=== PATIENT | male | born 1990 | race Caucasian/White ===

== ENCOUNTER → 2017-02-25 | Outpatient (CLI) | payer OTHER ==
--- NOTE | 2017-02-25 09:40 | ST Modified Barium Swallow ---
Recommendation - Recommendations Recommendations: No diet modifications recommended. Patient may benefit from GI consult due to possible contribution to globus sensation. Patient to consider outpatient speech therapy to address lingual deficits impacting speech and swallowing. Medical Diagnoses - Medical Diagnoses Medical Diagnosis Description & ICD-10 Code(s): dysphagia R13.10 Other Medical Diagnoses/Co-Morbidities: tongue atrophy, facial diplegia ST Modified Barium Swallow - General Date: 02/25/17 Referring Physician: Dr. Darwin Macias Risks/Precautions: None Date of Onset: 07/28/16 - patient reports approximately 8 months ago condition began Reason for Referral: tongue will "lock up" while eating at times - History History obtained from: Patient -: Medical - Patient states that he was diagnosed with cranial nerve VII hypoglossal nerve palsey in 2012. He more recently has noted "locking up" of right side of his tongue, which negatively impacts his eating and speech at times. No known injury/condition which precipitated this, no other surgery/ injury to head or neck area. Patient reports that he has had a prior MBSS. Medications: None reported Allergies: penicillin, amoxycillin, percocet - Functional Status Prior Functional Status: INDEPENDENT: feeding - adequate for all consistencies. Current Functional Limitations: feeding - Avoiding foods that are harder to chew. - Subjective Patient/caregiver goal(s): better swallow, safe swallow Cognitive-Linguistic Function: WNL Speech Intelligibility: WNL Current Nutritional Means: PO Current PO diet: Regular Current symptoms: c/o Globus sensation, other - difficulty swallowing Pain: 0/5 - Objective Assessment: Upright, Left Lateral - Food Trials Used Food trials used: Thin liquids, Pureed, Regular The patient: Was Able to Self Feed - Oral-Motor Skills Dentition: Full Laryngeal Function: Volitional Cough, Throat Clear, Volitional Swallow Oral Motor Skills: Upon lingual protrusion, tongue deviates to right side, visible lingual atrophy noted on right side of tongue. Able to lateralize, although effortfully. - Assessment Oral prep: Normal Labial closure: Adequate Leakage: None Mastication: Effortful Lingual Movement: Discoordinated Oral stage: Moderately Impaired Oral Stage: Difficulty seen with bolus manipulation and propulsion. - Pharyngeal Stage Initiation of Pharyngeal Stage Reflex: Delayed Reflex Delay Time (Seconds): 1 - due to tongue base retraction Decreased laryngeal elevation: No Reduced Velopharyngeal Closure: no Reduced pressure generation: No reduced tongue-based retraction: No Pre-swallow pooling in valleculae: Mild Pre-Swallow pooling in pyriforms: None Reduced pharyngeal peristalsis/contraction: No Post-swallow residulas vallecular: None Post-Swallow residuals in pyriforms: Mild Pharyngeal Stage Comments: Good basic swallowing function at pharyngeal level with exception of complications of reduced tongue base retraction. - Fall Risk Assessment Medications/Conditions that increase fall risks include: Antidepressants, sedatives, anti-arrhythmic, diuretic, benzodiazipenes, neuroleptics. BP regulation problems, cardiac problems, balance or gait deficits, neurological problems. Is patient considered at risk for falls: no Fall Risk Actions Taken: No action needed - Behavioral Observations During evaluation process patient: was pleasant, was cooperative, able to answer questions, provided medical history Mental Status: Alert & Oriented X3 - Treatment / Educational Needs: Treatment/Education Needs: Treatment consisted of patient education on the role of the Speech Pathologist. Patient's plan of care and golas were communicated as well as scheduling and attendance policies. Recommendations for initial home program were shared. Patient demonstrated understanding and verbalized agreement. Initial home program recommendations: Alternate bites and sips. - Impression/Summary Laryngeal Penetration: No Tracheal Aspiration: no Patient presents with: Oral stage dysphagia, Mild-Moderate Risk of Aspiration: Mild Risk of nutritional compromise: None Evaluation and Findings: While swallowing skills apeared adequate this day for all trial consistencies, the pateint reports that as he eats continually, the tongue will begin to "lock up", further impairing his swallow and causing things to "go down the wrong way". Oral phase deficits were noted this day, but not severe enough to significantly impact swallowing skills. - Recommendations Solid diet recommendations: Regular - Patient may modify diet for increased comfort. Liquid Diet Modification: Thin Recommended techniques: Small Bites and Sips, Alternate Bites/Sips Information, Precautions and Recommendations: Patient (Written), Patient (Verbal ) - Time Total Time: 25 - Tutoring Assistant Goals Tutoring Assistant Goals: #1 - Establish HEP for improved oral phase for swallowing., #2 - Trial OMEs and stretches to establish patient benefit from such procedures. - Plan of Care Summary: Recommend trial of outpatient treatment to establish more efficient oral phase feeding skills. Patient to follow-up with referring physician: Yes Rehab potential for established goals: Good POC Procedures/Codes: neuro/sensory re-ed - Further treatment procedures to be determined by treatment therapist., oral motor exercises Strategies to optimize patient understanding include:: ongoing assessment of educational needs, implementation of educational strategies, and re-education. - - -: Thank you for the opportunity to work with this patient and his/her family. Should you have any questions about this patient's plan or progress, I can be reached at [phone]. Charge G Code? - - -: No
--- NOTE | 2017-03-04 09:07 | RADIOLOGY REPORT (SQ) ---
EXAM DESCRIPTION: ARIELLE SWALLOW COMPLETED DATE/TIME: 02/25/2017 8:58 am REASON FOR STUDY: TONGUE ATROPHY, FACIAL DIPLEGIA AND DYSPHAGIA COMPARISON: None. TECHNIQUE: Videofluoroscopic swallowing examination was performed in conjunction with speech patholo gy. Videofluoroscopic imaging was obtained and reviewed and these are the findings: RADIATION DOSE: 1 minutes 20 seconds of fluoroscopy was used. 1 images saved to PACS. LIMITATIONS: None FINDINGS: The patient was brought into the fluoro room and placed upright on a modified barium swall ow chair. The patient was then given multiple consistencies mixed with barium to swallow under live fluoroscopic video guidance. According to the Speech Pathologist there was no penetration or aspirat ion. IMPRESSION: NO EVIDENCE OF PENETRATION OR ASPIRATION.PLEASE SEE SPEECH PATHOLOGIST REPORT FOR OTHER FINDINGS AND RECOMMENDATIONS. COMMENT: Quality ID [id number]: Final reports for procedures using fluoroscopy that document radiation exp osure indices, or exposure time and number of fluorographic images (if radiation exposure indices are not available) TECHNICAL DOCUMENTATION: JOB ID: [id number] [employer]- All Rights Reserved
== END ==
LOC: RAD 08:34
PROVIDERS: ATTEND Psychiatry & Neurology Neurology
DX: K14.8 Other diseases of tongue (principal); R13.10 Dysphagia, unspecified
CPT/HCPCS: 74230